=== PATIENT | female | born 1975 | race Caucasian/White ===

== ENCOUNTER 2018-10-20 06:15 | Inpatient (IN) ==
[2018-10-20] MEDS ORDERED: CeFAZolin Syr 2,000MG/20 ML 2,000 MG/20 ML SYRINGE IVPB ONE (06:36)
[2018-10-20] MEDS ORDERED: Albuterol 2.5 MG/3 ML NEBULIZER IH ONE (06:36)
[2018-10-20] MEDS ORDERED: Ringers Solution, Lactated 1,000 ML IVC SCH ×2 (06:45→13:05)
[2018-10-20] MEDS ORDERED: *HR* Propofol 200 MG/20 ML VIAL IVP ONE (07:14)
[2018-10-20] MEDS ORDERED: *HR* Succinylcholine 200 MG/10 ML VIAL IVP ONE (07:14)
[2018-10-20] MEDS ORDERED: Lidocaine -MPF 2% 2 ML VIAL ONE ×4 (07:14→08:19)
[2018-10-20] MEDS ORDERED: Lidocaine -MPF 4% 5 ML AMPUL ONE (07:14)
[2018-10-20] MEDS ORDERED: *HR* FentaNYL (PF) 100 MCG/2 ML VIAL ONE (07:14)
[2018-10-20] MEDS ORDERED: *HR* Midazolam HCl 2 MG/2 ML VIAL ONE (07:14)
[2018-10-20] MEDS ORDERED: *HR* Rocuronium Bromide 50 MG/5 ML VIAL ONE (07:14)
--- NOTE | 2018-10-20 07:24 | History & Physical Report ---
Date of Encounter: 10/20/18 Time of Encounter: 07:24 24 Hour HP Update - Instructions Instructions: If the History and Physical is less than 30 days old and was completed prior to A.M. admission and or procedure and has NOT been updated on calendar day of procedure please complete this update prior to performing procedure. - Update Patient reports changes in Medical Condition: No Changes in examination, assessment, or condition: No Changes in Medication: No Preop tests/diagnostics Reviewed: Yes Surgery Remains Indicated: Yes Consent for Planned Operative Procedure(s) Verified: Yes - Pre-Operative Checklist Preoperative Checklist Indicated: Yes Prophylactic Antibiotic Ordered: Yes Home Medications Include Beta Mirta: No Beta Mirta Taken Today (Day of Surgery): No Beta Mirta Taken Yesterday (Day Prior to Surgery): No Is VTE Prophylaxis Indicated?: Yes
[2018-10-20] MEDS ORDERED: *HR* Vasopressin 20 UNIT/ML VIAL ONE (07:49)
[2018-10-20] MEDS ORDERED: Bupivacaine/PF 0.75% in Dex 2 ML AMPUL INFILT ONE ×2 (07:51→07:52)
[2018-10-20] MEDS ORDERED: Morphine Sulfate/PF 5mg/10mL Vial ONE (07:51)
--- NOTE | 2018-10-20 07:51 | Anesthesia Evaluation PreOp ---
Date of Encounter: 10/20/18 Time of Encounter: 07:49 - Past History Planned Operation: Abdominal hysterectomy, harmony salpingectomy Cardiac History: Other (murmur, good functional capacity) Pulmonary History: Asthma (well controlled; rarely uses rescue nebulizer treatment) NEEDLE GRINDER History: Other (anxiety/depression) Other Medical History: Other (BMI 40) Anesthesia History: No Prior Anesthetic Complications, Past Anesthesia Alcohol Use: rarely Drug use: none Medications and Allergies Albuterol Sulfate [Albuterol Inhaler] 2 puff IH Q6H PRN 10/20/18 [History] Etodolac 400 mg PO BID 10/20/18 [History] FLUoxetine HCl [Prozac] 40 mg PO DAILY 10/20/18 [History] Fenofibrate Nanocrystallized [Fenofibrate] 160 mg PO DAILY 10/20/18 [History] Iron Polysaccharide Complex [Pro Fe] 180 mg PO DAILY 10/20/18 [History] Loratadine [Allergy Relief] 10 mg PO DAILY 10/20/18 [History] Medroxyprogesterone Acetate [Provera] 20 mg PO DAILY 10/20/18 [History] Ranitidine HCl [Heartburn Relief] 150 mg PO BID 10/20/18 [History] Allergy/AdvReac Type Severity Reaction Status Date / Time adhesive tape Allergy Rash Verified 10/20/18 07:21 - Meds/Allergy Pre-op Review Medications Reviewed: Yes Allergies Reviewed: Yes Beta Blockers on Current Med List: No Anesthesia Results - Labs Laboratory Tests 10/13/18 10/13/18 13:38 13:38 WBC 6.9 Hgb 12.5 Hct 39.7 Plt Count 480 H Creatinine 1.06 Est GFR ( Amer) > 60 Est GFR (Non-Af Amer) 56 L - Imaging EKG: report reviewed, image reviewed (SINUS RHYTHM MODERATE VOLTAGE CRITERIA FOR LVH, CONSIDER NORMAL VARIANT) Anesthesia Exam Last Vital Signs Temp 98.5 F 10/20/18 06:57 Pulse 81 10/20/18 06:57 Resp 18 10/20/18 06:57 BP 149/77 10/20/18 06:57 Pulse Ox 97 10/20/18 06:57 Weight: 116 kg NPO (# of Hours): > 8 hrs - HEENT Pupil (Motor): Pupils equal, EOMI Mallampati: III Teeth: Normal Oral Opening: Greater than 3 - NEEDLE GRINDER LOC: Oriented - Cardiac Rhythm: Regular - Pulmonary Breath Sounds: bilateral Clear Respiratory Effort: Symmetrical Anesthesia Assess/Plan ASA Score: 3 Level of consciousness: Cooperative Anesthetic Plan: General, Spinal (morphine) Monitoring Plan: Standard Monitors Recovery Plan: PACU
[2018-10-20] MEDS ORDERED: Acetaminophen IV 1,000 MG/100 ML INFUS..BTL ONE (07:53)
[2018-10-20] MEDS ORDERED: *HR* OxyCODONE ER (12 HR) 10 MG TABLET PO ONE (07:53)
--- NOTE | 2018-10-20 08:14 | Anesthesia Evaluation PreOp ---
Date of Encounter: 10/20/18 - Past History Alcohol Use: rarely Drug use: none Medications and Allergies Albuterol Sulfate [Albuterol Inhaler] 2 puff IH Q6H PRN 10/20/18 [History] Etodolac 400 mg PO BID 10/20/18 [History] FLUoxetine HCl [Prozac] 40 mg PO DAILY 10/20/18 [History] Fenofibrate Nanocrystallized [Fenofibrate] 160 mg PO DAILY 10/20/18 [History] Iron Polysaccharide Complex [Pro Fe] 180 mg PO DAILY 10/20/18 [History] Loratadine [Allergy Relief] 10 mg PO DAILY 10/20/18 [History] Medroxyprogesterone Acetate [Provera] 20 mg PO DAILY 10/20/18 [History] Ranitidine HCl [Heartburn Relief] 150 mg PO BID 10/20/18 [History] Allergy/AdvReac Type Severity Reaction Status Date / Time adhesive tape Allergy Rash Verified 10/20/18 07:21
[2018-10-20] MEDS ORDERED: *HR* PHENYLEPHRINE 1,000 MCG/10 ML SYRINGE IVP ONE (08:37)
[2018-10-20] MEDS ORDERED: Dexamethasone 4 MG/ML VIAL ONE (08:47)
[2018-10-20] MEDS ORDERED: Ondansetron 4 MG/2 ML VIAL ONE (08:47)
[2018-10-20] MEDS ORDERED: Ketorolac 30 MG/ML VIAL ONE (08:48)
[2018-10-20] MEDS ORDERED: Neostigmine Methylsulfate 3 MG/3 ML SYRINGE ONE (08:48)
[2018-10-20] MEDS ORDERED: *HR* HYDROMORPHONE 2 MG/ML VIAL ONE (09:32)
[2018-10-20] MEDS ORDERED: *HR* Promethazine 25 MG/ML VIAL IVP PRN ×2 (10:06→10:12)
[2018-10-20] MEDS ORDERED: *HR* OxyCODONE Immed Rel 5 MG TABLET PO PRN ×3 (10:06→19:50)
[2018-10-20] MEDS: *HR* HYDROmorphone (PF) 1 MG/ML SYRINGE IVP PRN ×2 (11:26→11:32)
[2018-10-20] MEDS ORDERED: Ipratropium/Albuterol Neb 3 ML IH ONE (11:47)
[2018-10-20] MEDS ORDERED: Dexamethasone 4 MG/ML VIAL IVP ONE (11:47)
--- NOTE | 2018-10-20 12:00 | OB/GYN Procedure Note ---
OB-[employer]: Procedure - Diagnosis Date of procedure: 10/20/18 Pre-op diagnosis: Fibroid uterus, AUB Post-op diagnosis: same - Procedure Procedure: NEAL, b/l salpingectomy Surgeon: Bubba Smith Was there an registered dental assistant rda present: Yes Contract Runner: Benedicto Cain Anesthesia Type: General Estimated blood loss (cc): 400 Fluids: crystalloid Procedure Complications: none Specimens collected: Fibroid uterus, b/l tubes and cervix Disposition: floor Findings: large fibroid uterus 16 week size, endometrioma noted on the left, normal ovary on the right Narrative: After informed consent was obtained, the patient was taken to the Operating Room where general anesthesia was administered without difficulty. The patient was then placed in dorsal lithotomy position, prepped and draped in the usual sterile fashion. A pfannensteil incision was made into the abdomen down through the subcutaneous tissue and muscular fascia. The rectus muscle was then separat ed in the midline. The peritoneum was identified and entered bluntly. The peritoneal incision was extended. The uterus was then exteriorized and noted to have the findings as above. Parking sponges were placed into the abdomen. The first step I took was to inject Vasopressin into the large subserosal fibroid that was located anteriorly. I then performed a myomectomy successfully. This reduced the size of the uterus and I turned my attention to performing the hysterectomy. The fallopian tubes, bilaterally were clamped with the Ligasure, coagulated and transected. The round ligaments were clamped with the Ligasure, coagulated and transected. The uterovarian vessels, bilaterally were clamped, coagulated and cut with the Ligasure. I then skeletonized the uterine vessels on either side and carefully dissected the bladder flap anteriorly. Posteriorly, the peritoneum was dissected down toward the uterosacral ligaments. Amy clamps were then placed at each isthmic portion of the cervical body junction where the uterine arteries adjoined the uterus. These were clamped, ligated and divided using #0 Vicryl suture. The remainder of the uterus was then removed by the [id number] technique using #0 Vicryl on all major pedicles. With removal of the uterus, the vaginal cuff was closed in the usual manner with 0 vicryl. Hemostasis was then inspected and secured throughout the entire area. The ovaries were left in situ. The lap sponges were then removed. The patient tolerated the operation nicely. There were no complications associated with this surgical procedure to this point. The sponge count was correct times 2 at this time. Having removed all instruments and packs, we then began closure of the abdomen. The fascia was closed with #0 vicryl in a running continuous manner and the subcutaneous tissue was also closed with #3-0 Vicryl. The skin was closed with #4-0 vicryl. The patient tolerated the operation nicely and was then taken to the Recovery Room in good condition. of note, I asked Dr Cain to assist me with this case because this was a large fibroid uterus and I anticipated we might encounter some bleeding. He assisted me in retracting, counter traction, clamping and cutting suture and tissue
[2018-10-20] MEDS ORDERED: Ondansetron 4 MG/2 ML VIAL IVP PRN (13:05)
[2018-10-20] MEDS ORDERED: Naloxone 0.4 MG/ML INJ IVP PRN (13:05)
[2018-10-20] MEDS: *HR* OxyCODONE/APAP 5/325 TABLET PO PRN ×2 (15:16→20:26)
--- NOTE | 2018-10-20 15:34 | Anesthesia Evaluation Post Op ---
Date of Encounter: 10/20/18 Time of Encounter: 12:30 - Vital Signs Vital Signs: Vital Signs Temp Pulse Resp BP Pulse Ox 10/20/18 14:01 98.2 F 85 16 135/92 95 10/20/18 14:00 98.2 F 85 16 135/92 95 10/20/18 13:30 98.2 F 85 16 135/92 95 10/20/18 13:00 98.4 F 90 14 126/80 95 10/20/18 12:38 97.6 F 90 18 121/89 95 10/20/18 12:28 97.6 F 91 18 130/91 96 10/20/18 12:18 97.6 F 93 18 133/92 94 10/20/18 12:08 96 18 142/83 95 10/20/18 11:58 96 18 145/86 95 10/20/18 11:48 97.8 F 90 18 145/80 98 10/20/18 11:38 86 18 149/74 96 10/20/18 11:28 90 20 163/101 96 10/20/18 11:18 98.3 F 82 20 147/93 99 10/20/18 11:08 96 18 142/83 95 10/20/18 06:57 98.5 F 81 18 149/77 97 Intake and Output 10/19/18 10/20/18 10/20/18 23:59 07:59 15:59 Intake Total 20 / 20 Output Total 700 / 700 Balance -680 / -680 Intake: IV Fluids 20 / 20 Ancef Syringe 2,000 MG/20 ML 2, 20 / 20 000 mg In 20 ml @ 200 mls/hr IVPB PREOP ONE Rx#:[id number] Output: Urine 0 / 0 Estimated Blood Loss 400 / 400 Urine Amount (Catheter) 300 / 300 Other: Weight 115.666 kg Patient Weight 10/20/18 23:59 Weight 115.666 kg - Lungs Lungs: Clear Ascult./Percussion - Airway Airway: Non-obstructed - Cardiovascular Regular Rate - Mental Status Mental Status: Alert & Oriented, Answers Appropriately - Pain Pain Scale: 4 Pain Scale used: Numeric (1 - 10) - Nausea Vomiting Nausea Vomiting: Not Present - Hydration Hydration: Ice chips, Zaldivar catheter - Discharge PostOp Status: Transfer Patient to floor Anes Supervising Prov Stmt: Pt seen/evaluated, R&B Discussed, questions answered and consent obtained. Molly Nance MD
[2018-10-20] MEDS: Ibuprofen 600 MG TABLET PO PRN (17:31)
[2018-10-21] MEDS: *HR* OxyCODONE/APAP 5/325 TABLET PO PRN ×5 (00:02→22:39)
[2018-10-21] MEDS: Ibuprofen 600 MG TABLET PO PRN ×4 (00:03→20:45)
[2018-10-21] MEDS: Simethicone 80 MG TAB.CHEW PO PRN ×4 (04:13→20:50)
[2018-10-21 07:24] LABS: Basophils % 0.3 %; Eosinophils % 0.1 %; Hematocrit 31.9 % (35.3-44.9); Immature Granulocytes % 0.3 % (0-4); Lymphocytes # 1.4 K/mcL (0.6-4.6); Lymphocytes % 14.2 %; Mean Corpuscular HGB Conc 31.3 g/dL (31.6-35.5); Mean Corpuscular Hemoglobin 26.4 pg (28.0-33.3); Mean Corpuscular Volume 84.2 fL (83.0-100.0); Mean Platelet Volume 9.7 fL (9.4-12.4); Monocytes # 0.8 K/mcL (0.0-1.3); Monocytes % 8.5 %; Neutrophils # 7.5 K/mcL (1.6-8.9); Platelet Count 341 K/mcL (140-400); Red Blood Count 3.79 M/mcL (3.82-4.97); Red Cell Distribution Width 14.6 % (11.5-14.5); Segmented Neutrophils % 76.6 %; White Blood Count 9.8 K/mcL (4.3-11.1)
[2018-10-21] MEDS: Iron Polysaccharide Complex 150 MG CAPSULE PO SCH (08:08)
[2018-10-21] MEDS: Loratadine 10 MG TABLET PO SCH (08:09)
[2018-10-21] MEDS: Fenofibrate 54 MG TABLET PO SCH (08:09)
[2018-10-21] MEDS: FLUoxetine 20 MG CAPSULE PO SCH (08:09)
--- NOTE | 2018-10-21 08:09 | OB/GYN Progress Note ---
Date of Encounter: 10/21/18 Time of Encounter: 08:06 - Assessment and Plan (1) Status post hysterectomy Current Visit: Yes Status: Acute 43 y/o s/p NEAL, POD#1, patient is doing well, however wants to stay one more day, ambulation encouraged, tolerating PO, ambulating without issues, pain is under control, discharge tomorrow Subjective - Subjective Patient reports: appetite normal, voiding normally (not yet ambulating), pain well controlled Objective - Vital Signs Latest vital signs: Vital Signs Temp Pulse Pulse Resp BP Pulse Ox 10/21/18 03:50 98.2 F 86 14 119/76 99 10/21/18 00:05 98.2 F 89 16 125/81 97 10/20/18 20:50 98.7 F 93 16 167/93 97 10/20/18 18:38 97.6 F 72 16 107/73 97 10/20/18 16:30 16 10/20/18 16:00 97.8 F 91 16 120/82 95 10/20/18 15:51 98.2 F 105 16 151/81 96 10/20/18 15:10 98.2 F 105 105 16 151/81 96 10/20/18 14:01 98.2 F 85 16 135/92 95 10/20/18 14:00 98.2 F 85 16 135/92 95 10/20/18 13:30 98.2 F 85 16 135/92 95 10/20/18 13:00 98.4 F 90 14 126/80 95 10/20/18 12:38 97.6 F 90 18 121/89 95 10/20/18 12:28 97.6 F 91 18 130/91 96 10/20/18 12:18 97.6 F 93 18 133/92 94 10/20/18 12:08 96 18 142/83 95 10/20/18 11:58 96 18 145/86 95 10/20/18 11:48 97.8 F 90 18 145/80 98 10/20/18 11:38 86 18 149/74 96 10/20/18 11:28 90 20 163/101 96 10/20/18 11:18 98.3 F 82 20 147/93 99 10/20/18 11:08 96 18 142/83 95 Intake and Output 10/20/18 10/21/18 10/21/18 23:59 07:59 15:59 Intake Total 0 20 640 / 640 Output Total 700 / 1400 1700 / 1700 Balance -700 / -1380 -1060 / -1060 Intake: Oral 0 / 0 640 / 640 Output: Urine 650 / 650 Catheter 700 / 700 1050 / 1050 - I&O's I&O's: Intake & Output 10/18/18 10/19/18 10/20/18 10/21/18 23:59 23:59 23:59 23:59 Intake Total 640 / 640 Output Total 1400 / 1400 1700 / 1700 Balance -1380 / -1380 -1060 / -1060 Weight 115.666 kg - Exam Lungs: bilateral: normal Chest: Normal S1, Normal S2 Extremities: Present: normal Abdomen: Present: soft (+bowel sounds) Incision OB: Present: normal - Labs Labs: Abnormal lab results RBC 3.79 M/mcL (3.82-4.97) L 10/21/18 07:09 Hgb 10.0 g/dL (11.5-15.4) L 10/21/18 07:09 Hct 31.9 % (35.3-44.9) L 10/21/18 07:09 MCH 26.4 pg (28.0-33.3) L 10/21/18 07:09 MCHC 31.3 g/dL (31.6-35.5) L 10/21/18 07:09 RDW 14.6 % (11.5-14.5) H 10/21/18 07:09 Consult Discharge Plan - Plan Referrals: NONE,PCP [Primary Care Provider] -
[2018-10-22] MEDS: *HR* OxyCODONE/APAP 5/325 TABLET PO PRN ×2 (02:34→08:00)
[2018-10-22] MEDS: Ibuprofen 600 MG TABLET PO PRN (02:35)
--- NOTE | 2018-10-22 07:41 | Discharge Summary ---
Date of Encounter: 10/22/18 Time of Encounter: 07:39 - Discharge Diagnosis (1) Status post hysterectomy Priority: Primary Status: Acute Comments: 43 y/o s/p NEAL, POD#2, patient is doing well, ambulating, tolerating PO, good urine output, ok for discharge, scripts sent to pharmacy (including valtrex for oral herpes) - Discharge Medications Prescriptions: No Action Albuterol Sulfate [Albuterol Inhaler] 2 puff IH Q6H PRN PRN Reason: Shortness Of Breath Etodolac 400 mg PO BID Fenofibrate Nanocrystallized [Fenofibrate] 160 mg PO DAILY FLUoxetine HCl [Prozac] 40 mg PO DAILY Iron Polysaccharide Complex [Pro Fe] 180 mg PO DAILY Loratadine [Allergy Relief] 10 mg PO DAILY Medroxyprogesterone Acetate [Provera] 20 mg PO DAILY Ranitidine HCl [Heartburn Relief] 150 mg PO BID Home Medications: Albuterol Sulfate [Albuterol Inhaler] 2 puff IH Q6H PRN 10/20/18 [History] Etodolac 400 mg PO BID 10/20/18 [History] FLUoxetine HCl [Prozac] 40 mg PO DAILY 10/20/18 [History] Fenofibrate Nanocrystallized [Fenofibrate] 160 mg PO DAILY 10/20/18 [History] Iron Polysaccharide Complex [Pro Fe] 180 mg PO DAILY 10/20/18 [History] Loratadine [Allergy Relief] 10 mg PO DAILY 10/20/18 [History] Medroxyprogesterone Acetate [Provera] 20 mg PO DAILY 10/20/18 [History] Ranitidine HCl [Heartburn Relief] 150 mg PO BID 10/20/18 [History] Allergies/Adverse Reactions: Allergy/AdvReac Type Severity Reaction Status Date / Time adhesive tape Allergy Rash Verified 10/20/18 07:21 Data Procedures and tests throughout hospitalization: Laboratory Tests 10/21/18 07:09 WBC 9.8 RBC 3.79 L Hgb 10.0 L Hct 31.9 L MCV 84.2 MCH 26.4 L MCHC 31.3 L RDW 14.6 H Plt Count 341 MPV 9.7 Immature Gran % 0.3 Seg Neutrophils % 76.6 Lymphocytes % 14.2 Monocytes % 8.5 Eosinophils % 0.1 Basophils % 0.3 Neutrophils # 7.5 Lymphocytes # 1.4 Monocytes # 0.8 Eosinophils # 0.0 Basophils # 0.0 Date of admission: 10/20/18 12:54 Primary care physician: PCP NONE - Patient Status Disposition: Home, Self-Care Condition: Good Functional capacity at discharge: independent ambulation Overall status at discharge: patient is progressing back to baseline - Discharge Instructions Follow Up With: NONE,PCP [Primary Care Provider] - Hospital Course DYE MACHINE TENDER Time Attestation: Total time spent providing and/or coordinating discharge services: Exam - Constitutional Vitals: Temp Pulse Resp BP Pulse Ox 98.2 F 78 16 132/53 98 10/22/18 04:43 10/22/18 04:43 10/22/18 04:43 10/22/18 04:43 10/22/18 04:43 General appearance IM: A&O X 3 - Respiratory Respiratory exam: Present: CTAB - Cardiovascular Cardiovascular exam IM: Present: RRR - GI/Abdominal GI/Abdominal exam IM: normal bowel sounds, soft Incision: normal - VTE Documentation of Mechanical Device: Intermittent pneumatic compression device
[2018-10-22] MEDS: Simethicone 80 MG TAB.CHEW PO PRN (08:00)
[2018-10-22] MEDS: Loratadine 10 MG TABLET PO SCH (08:01)
[2018-10-22] MEDS: FLUoxetine 20 MG CAPSULE PO SCH (08:01)
[2018-10-22] MEDS: Iron Polysaccharide Complex 150 MG CAPSULE PO SCH (08:01)
[2018-10-22] MEDS: Fenofibrate 54 MG TABLET PO SCH (08:01)
[2018-10-22 08:07] VITALS: BP 142/87
== END 2018-10-22 10:35 | disposition home or self-care (01) | DRG 742 ==
LOC: SAMDAY 06:15 → 1NENUOBS 12:54
PROVIDERS: ADMIT Student in an Organized Health Care Education/Training Program; ATTEND Student in an Organized Health Care Education/Training Program